=== PATIENT | male | born 1970 | race Caucasian/White ===

== ENCOUNTER 2020-03-05 15:24 | Emergency (ER) | payer OTHER ==
[2020-03-05 16:01] LABS: #Eosinphils 0.1 thou/uL (0.0-0.7); #Lymphocytes 1.3 thou/uL (1.20-3.40); #Monocytes 0.7 thou/uL (0.11-0.59); #Neutrophils 6.1 thou/uL (1.40-6.50); %Basophils 0.5 % (0.0-1.0); %Eosinophils 1.7 % (0.0-10.0); %Lymphocytes 16.1 % (21.0-51.0); %Monocytes 8.5 % (0.0-10.0); %Neutrophils 73.1 % (42.0-75.0); Hemoglobin 15.3 g/dL (14.0-18.0); Mean Corpuscular HGB CONC 34.1 g/dL (32.0-36.0); Mean Corpuscular Hemoglobin 30.3 pg (27.0-31.0); Mean Corpuscular Volume 88.9 fL (78.0-98.0); Mean Platelet Volume 7.5 fL (7.4-10.4); Platelet Count 220 thou/uL (130-400); RBC Distribution Width 11.7 % (11.5-14.5); Red Blood Cell (RBC) Count 5.05 mill/uL (4.70-6.10); White Blood Cell (WBC) Count 8.3 thou/uL (4.8-10.8)
[2020-03-05] MEDS ORDERED: Ondansetron PF 4 MG/2 ML Vial ONE (16:20)
[2020-03-05] MEDS ORDERED: Ketorolac Tromethamine 30 MG/ML VIAL ONE (16:20)
[2020-03-05 16:21] LABS: ALT (SGPT) 26 U/L (8-55); AST (SGOT) 18 U/L (5-34); Albumin 4.2 g/dL (3.5-5.0); Alkaline Phosphatase 86 U/L (40-110); Anion Gap 15 mmol/L (10-20); BUN (Urea Nitrogen) 19 mg/dL (8.9-20.6); Bilirubin, Total 0.6 mg/dL (0.2-1.2); CK (CPK) 83 U/L (30-200); Calc. Creatinine Clearance 0 mL/min (70-130); Calcium 8.5 mg/dL (7.8-10.44); Carbon Dioxide 19 mmol/L (22-29); Chloride 109 mmol/L (98-107); Estimated GFR-MDRD 68; Globulin 2.3 g/dL (2.4-3.5); Glucose 100 mg/dL (70-105); Potassium 4.3 mmol/L (3.5-5.1); Protein, Total 6.5 g/dL (6.0-8.3); Sodium 139 mmol/L (136-145)
[2020-03-05 16:38] LABS: Bacteria/HPF None Seen HPF (None Seen); Bilirubin Negative (Negative); Blood, Urine 1+ (Negative); Clarity Clear (Clear); Glucose, Urine (Dipstick) Normal (Negative); Ketone, Urine Negative (Negative); Leukocyte Negative Leu/uL (Negative); Nitrite Negative (Negative); Protein, Urine (Dipstick) 30 mg/dL (Neg-Trace); Specific Gravity, Urine 1.035 (1.002-1.036); Squamous Epithelial 0-3 HPF (0-3); WBC/HPF 0-3 HPF (0-3); pH, Urine 5.5 (5.0-9.0)
--- NOTE | 2020-03-05 17:22 | CT ---
CT ABDOMEN AND PELVIS: Date: 03-05-2020 PROVIDED CLINICAL HISTORY: Left flank pain. FINDINGS: The visualized lung bases are free of significant opacity. There is a 1-2 mm left UVJ calculus without significant obstructive change. No conditional urinary tr act calculi are evident. The solid abdominal organs are suboptimally evaluated in the absence of IV contrast material but demo nstrate an otherwise unremarkable unenhanced CT appearance. Changes of prior cholecystectomy are seen . The appendix appears normal. There are fat stranding changes within the central small bowel mesentery without lymph node enlargeme nt apparent. There is no additional fat stranding, free fluid, or free air. The osseous structures demonstrate no concerning lytic or blastic lesions. IMPRESSION: 1. 1-2 mm left UVJ calculus without obstruction. 2. Fat stranding changes within the central small bowel mesentery, which can be seen in the setting o f mesenteric panniculitis. POS: [facility]UL[facility]
== END 2020-03-05 18:11 | disposition home or self-care (01) ==
LOC: ERS 15:24
DX: N20.2 Calculus of kidney with calculus of ureter (principal); I10 Essential (primary) hypertension; F41.9 Anxiety disorder, unspecified; F17.210 Nicotine dependence, cigarettes, uncomplicated; Z79.899 Other long term (current) drug therapy
CPT/HCPCS: 36415; 74176; 80053; 81003; 81015; 82550; 83605; 85025; 96361; 96374; 96375; J1885; J2405

== ENCOUNTER 2020-04-02 16:32 | Emergency (ER) | payer OTHER ==
[2020-04-02] MEDS ORDERED: Lidocaine 1% w/Epinephrine 1:100K 20 ML VIAL ONE (16:51)
[2020-04-02] MEDS ORDERED: Bacitracin 1 PK ONE (17:21)
== END 2020-04-02 17:18 | disposition home or self-care (01) ==
LOC: ERS 16:32
DX: S46.321A Laceration of muscle, fascia and tendon of triceps, right arm, initial encounter (principal); I10 Essential (primary) hypertension; F41.9 Anxiety disorder, unspecified; F17.210 Nicotine dependence, cigarettes, uncomplicated; Z79.899 Other long term (current) drug therapy; W25.XXXA Contact with sharp glass, initial encounter
CPT/HCPCS: 12002

== ENCOUNTER 2021-12-20 14:59 | Emergency (ER) | payer OTHER, SELFPAY ==
[2021-12-20] MEDS ORDERED: Morphine 4 MG/ML VIAL ONE (16:09)
[2021-12-20] MEDS ORDERED: Ketorolac Tromethamine 30 MG/ML VIAL ONE (16:09)
== END 2021-12-20 16:37 | disposition home or self-care (01) ==
LOC: ERS 14:59
DX: M25.512 Pain in left shoulder (principal); I10 Essential (primary) hypertension; F17.210 Nicotine dependence, cigarettes, uncomplicated; Z79.899 Other long term (current) drug therapy
CPT/HCPCS: 96372; J1885; J2270

== ENCOUNTER 2025-02-15 16:47 | Observation (INO) | payer OTHER ==
[2025-02-15 18:25] LABS: #Basophils 0.04 10x3/uL (0.0-0.2); #Eosinophils 0.17 10x3/uL (0.0-0.7); #Monocytes 1.01 10x3/uL (0.11-0.59); #Neutrophils 8.53 10x3/uL (1.40-6.50); %Basophils 0.3 % (0.0-1.0); %Eosinophils 1.4 % (0.0-10.0); %Lymphocytes 21.5 % (21.0-51.0); %Monocytes 8.1 % (0.0-10.0); %Neutrophils 68.4 % (42.0-75.0); Hematocrit 48.1 % (42.0-52.0); Hemoglobin 16.3 g/dL (14.0-18.0); Mean Corpuscular Hemoglobin 29.3 pg (27.0-31.0); Mean Corpuscular Volume 86.5 fL (78.0-98.0); Platelet Count 247 10x3/uL (130-400); Red Blood Cell (RBC) Count 5.56 mill/uL (4.70-6.10); White Blood Cell (WBC) Count 12.47 10x3/uL (4.8-10.8)
[2025-02-15 18:44] LABS: ALT (SGPT) 19 U/L (Less than 45); AST (SGOT) 19 U/L (11-34); Albumin 3.9 g/dL (3.1-4.5); Alkaline Phosphatase 92 U/L (40-110); Anion Gap 12 mmol/L (10-20); BUN (Urea Nitrogen) 18 mg/dL (8.4-25.7); Bilirubin, Total 0.4 mg/dL (0.3-1.2); Calc. Creatinine Clearance 0 mL/min (70-130); Calcium 8.7 mg/dL (7.8-10.44); Carbon Dioxide 23 mmol/L (22-29); Chloride 109 mmol/L (98-107); Globulin 2.4 g/dL (2.4-3.5); Glucose 90 mg/dL (70-105); Potassium 4.4 mmol/L (3.5-5.1); Sodium 140 mmol/L (136-145)
[2025-02-15] MEDS ORDERED: Aspirin Chewable 81 MG TAB ONE (20:27)
[2025-02-15] MEDS ORDERED: Pantoprazole 40 MG VIAL ONE (20:28)
[2025-02-15] MEDS ORDERED: Acetaminophen 325 MG TAB PO PRN (21:06)
[2025-02-15] MEDS ORDERED: Ondansetron PF 4 MG/2 ML Vial IVP PRN (21:06)
[2025-02-15 23:38] VITALS: BMI 26.4
[2025-02-16 05:19] LABS: #Basophils 0.04 10x3/uL (0.0-0.2); #Eosinophils 0.20 10x3/uL (0.0-0.7); #Monocytes 0.76 10x3/uL (0.11-0.59); #Neutrophils 5.10 10x3/uL (1.40-6.50); %Basophils 0.5 % (0.0-1.0); %Eosinophils 2.3 % (0.0-10.0); %Lymphocytes 28.4 % (21.0-51.0); %Monocytes 8.9 % (0.0-10.0); %Neutrophils 59.4 % (42.0-75.0); Hematocrit 43.3 % (42.0-52.0); Hemoglobin 14.7 g/dL (14.0-18.0); Mean Corpuscular Hemoglobin 29.5 pg (27.0-31.0); Mean Corpuscular Volume 86.9 fL (78.0-98.0); Platelet Count 211 10x3/uL (130-400); Red Blood Cell (RBC) Count 4.98 mill/uL (4.70-6.10); White Blood Cell (WBC) Count 8.58 10x3/uL (4.8-10.8)
[2025-02-16 05:43] LABS: Anion Gap 11 mmol/L (10-20); BUN (Urea Nitrogen) 20 mg/dL (8.4-25.7); Calc. Creatinine Clearance 89 mL/min (70-130); Calcium 8.1 mg/dL (7.8-10.44); Carbon Dioxide 25 mmol/L (22-29); Cardiac Risk 6.3 (Less than 4.5); Chloride 108 mmol/L (98-107); Cholesterol 184 mg/dl (< 200 Desired); Glucose 97 mg/dL (70-105); HDL Cholesterol 29 mg/dL (>60 Neg Risk); LDL Cholesterol, Calculated 117 mg/dL; Potassium 3.9 mmol/L (3.5-5.1); Sodium 140 mmol/L (136-145); Triglycerides 192 mg/dL (Less than 150)
[2025-02-16] MEDS: Famotidine/PF 20 mg/2ml Vial SLOW IVP SCH (09:13)
[2025-02-16] MEDS ORDERED: IBUPROFEN 400 MG PO PRN (11:12)
[2025-02-16] MEDS ORDERED: Ibuprofen 200 MG TAB PO PRN (11:21)
[2025-02-16] MEDS: Ibuprofen 200 MG TAB PO PRN (12:57)
[2025-02-16 14:55] VITALS: BP 127/78; TEMP 97.9
== END 2025-02-16 16:13 | disposition home or self-care (01) ==
LOC: ERS 16:47 → ERHOLD 22:04 → INTOOBSV 22:04 → PCU 23:15
PROVIDERS: ADMIT Internal Medicine; ATTEND Internal Medicine
DX: R07.89 Other chest pain (principal); I10 Essential (primary) hypertension; E78.5 Hyperlipidemia, unspecified; F17.200 Nicotine dependence, unspecified, uncomplicated; Z90.49 Acquired absence of other specified parts of digestive tract; Z91.041 Radiographic dye allergy status; Z88.0 Allergy status to penicillin; Z79.899 Other long term (current) drug therapy
CPT/HCPCS: 36415; 71045; 78452; 80048; 80053; 80061; 83036; 83690; 83880; 84484; 85025; 93005; 93017; 96374; 96375; A9502; G0378; J1308; J2470; J2785